=== PATIENT | male | born 1975 | race Two or more races ===

== ENCOUNTER 2021-04-19 00:49 | Emergency (ER) | payer OTHER ==
[2021-04-19 00:52] VITALS: BP 140/97; PULSE 77; RESP 20; TEMP 98.6
--- NOTE | 2021-04-19 01:04 | ED ---
Recheck HPI - General Chief Complaint: Recheck/Abnormal Lab/Rx Stated Complaint: Covid Test for [place] Time Seen by Provider: 04/19/21 01:03 Source: patient Mode of arrival: ambulatory Limitations: no limitations - History of Present Illness Initial Comments: 45-year-old male patient presents to the emergency department today for COVID- 19 testing [place]. Denies any symptoms are recent exposure. Declines any further medical screening. - Related Data Allergies Allergy/AdvReac Type Severity Reaction Status Date / Time No Known Allergies Allergy Verified 04/19/21 00:52 Review of Systems ROS Statement: Those systems with pertinent positive or pertinent negative responses have been documented in the HPI. ROS Other: All systems not noted in ROS Statement are negative. Past Medical History Past Medical History: No Reported History History of Any Multi-Drug Resistant Organisms: None Reported Past Surgical History: No Surgical Hx Reported Past Psychological History: No Psychological Hx Reported Smoking Status: Never smoker Past Alcohol Use History: None Reported Past Drug Use History: None Reported General Exam Limitations: no limitations General appearance: alert, in no apparent distress Neurological exam: Present: alert, oriented X3 Course Vital Signs 04/19/21 00:49 Temperature 98.6 F Pulse Rate 77 Respiratory 20 Rate Blood Pressure 140/97 O2 Sat by Pulse 99 Oximetry Medical Decision Making - Medical Decision Making 45-year-old male patient presented to the emergency department requesting testing for COVID-19 in order to [place] the [place] into [place]. He tested negative and was provided with copy of the result. He declined any further medical screening. My attending is Dr. Jackson. - Lab Data Lab Results 04/19/21 Range/Units 00:54 Coronavirus (PCR) Not Detected (Not Detectd) Disposition Clinical Impression: Encounter for laboratory testing for COVID-19 virus Disposition: HOME SELF-CARE Condition: Good Instructions (If sedation given, give patient instructions): Coronavirus Disease 2019 (COVID-19) Is patient prescribed a controlled substance at d/c from ED?: No Referrals: Nonstaff,Physician [Primary Care Provider] - 1-2 days
== END 2021-04-19 01:32 | disposition home or self-care (01) ==
LOC: EC 00:49
DX: Z20.822 Contact with and (suspected) exposure to COVID-19 (principal)
CPT/HCPCS: 87635; 99282